=== PATIENT | female | born 1930 | race Caucasian/White ===

== ENCOUNTER 2017-05-05 10:18 | Emergency (ER) | payer MEDICARE, BC ==
[2017-05-05] MEDS ORDERED: Sodium Chloride 0.9% 10 ML Syringe FLUSH PRN (11:04)
[2017-05-05] MEDS ORDERED: HYDROmorphone 0.5 MG/0.5 ML Syringe IVPUSH ONE (11:05)
--- NOTE | 2017-05-05 11:13 | EDM.PDOC ---
ED HPI GENERAL MEDICAL PROBLEM - General Chief Complaint: Head Injury Stated Complaint: FALL/TROUBLE AMBULATING/DIFFICULTY BREATHING Time Seen by Provider: 05/05/17 10:41 Source of Information: Reports: Patient, Family, Long-Term Records History Limitations: Reports: No Limitations - History of Present Illness INITIAL COMMENTS - FREE TEXT/NARRATIVE: Patient is a 87-year-old female with history of chronic atrial fibrillation on Xarelto who presents to the ED complaining of posterior head pain, thoracic and lumbar back pain, and swelling to the back of her head. Patient fell yesterday while in the bathroom. She states her feet got tangled up and she lost her balance hitting the back of her head on a toilet. There was no loss of consciousness. Patient had no complaints yesterday. Today she complains of the above issues. In addition she has no shortness of breath secondary to back spasms. States the back spasms come on intermittently making it difficult for her to take a deep breath. Denies any vision changes, nausea/vomiting, chest pain, abdominal pain, nausea/vomiting, diaphoresis, diarrhea, painful urination , increased swelling to the lower extremities, PND, orthopnea, fever/chills, or any additional complaints. Lower Back Pain Score (Numeric/FACES): 7 Head Pain Score (Numeric/FACES): 7 - Related Data Allergies Allergy/AdvReac Type Severity Reaction Status Date / Time statin Allergy Muscle Uncoded 05/05/17 10:40 Aches Home Meds: Home Meds Aspirin 81 mg PO BRK 07/06/15 [History] Benazepril [Lotensin] 20 mg PO DAILY 07/06/15 [History] Digoxin [Lanoxin] 125 mcg PO DAILY 07/06/15 [History] Ezetimibe [Zetia] 10 mg PO DAILY 07/06/15 [History] Fenofibrate Nanocrystallized [Tricor] 145 mg PO DAILY 07/06/15 [History] Furosemide [Lasix] 40 mg PO DAILY 07/06/15 [History] Metoprolol Tartrate [Lopressor] 100 mg PO BID 07/06/15 [History] Nitroglycerin [Nitrostat] 0.4 mg SL Q5M PRN 07/06/15 [History] Oxymetazoline HCl [Afrin] 2 spray NS BEDTIME PRN 07/06/15 [History] amLODIPine [Norvasc] 5 mg PO DAILY 07/06/15 [History] metFORMIN [Glucophage] 1,000 mg PO DAILY@1700 07/06/15 [History] Acetaminophen [Tylenol] 650 mg PO Q4H PRN #0 tablet 10/08/16 [Rx] Levothyroxine [Synthroid] 50 mcg PO ACBREAKFAST #30 tablet 10/08/16 [Rx] Rivaroxaban [Xarelto] 10 mg PO DAILY #30 tablet 10/08/16 [Rx] Acetaminophen 650 mg PO BEDTIME 05/05/17 [History] Ammonia Solution, Strong/MSM [Penetran + Plus 1.5%] 1 applic TOP BID 05/05/17 [ History] Carboxymethylcellulose Sodium [Refresh Celluvisc] 1 drop EYEBOTH DAILY PRN 05/05 [History] Ciprofloxacin [Ciprofloxacin HCl] 500 mg PO BID #14 tablet 05/05/17 [Rx] Clotrimazole [Lotrimin AF 1% Crm] 1 applic TOP BID PRN 05/05/17 [History] Insulin Aspart [NovoLOG] 12 unit SUBCUT DAILY@1700 05/05/17 [History] Insulin Aspart [Novolog] 10 unit SQ BID@0800,1200 05/05/17 [History] Tresiba 100 Unit /Ml 68 unit SQ BEDTIME 05/05/17 [History] metFORMIN HCl [Metformin HCl] 500 mg PO DAILY@0800 05/05/17 [History] Past Medical History HEENT History: Reports: Cataract Cardiovascular History: Reports: Afib, Bypass, CAD, High Cholesterol, Hypertension Respiratory History: Reports: Sleep Apnea, SOB Gastrointestinal History: Reports: Gastritis Genitourinary History: Reports: Urinary Incontinence Other Genitourinary History: urinary incontinence Musculoskeletal History: Reports: Arthritis, Back Pain, Chronic Endocrine/Metabolic History: Reports: Diabetes, Type II, Hypothyroidism Other Endocrine/Metabolic History: on insulin - Infectious Disease History Infectious Disease History: Reports: Shingles - Past Surgical History HEENT Surgical History: Reports: Cataract Surgery, Tonsillectomy Cardiovascular Surgical History: Reports: Coronary Artery Bypass Social & Family History - Family History Cardiac: Reports: Afib, CAD Respiratory: Reports: COPD, Sleep Apnea GI: Reports: None : Reports: None OBGYN: Reports: None Musculoskeletal: Reports: Arthritis, Back pain, Chronic Neurological: Reports: None Psychiatric: Reports: None Endocrine/Metabolic: Reports: Diabetes, type II, Hypothyroidism Hematologic: Reports: None Immunologic: Reports: None Dermatologic: Reports: None Oncologic: Reports: Bone (brohter), Prostate (father) - Tobacco Use Smoking Status *Q: Former Smoker Years of Tobacco use: 48 Packs/Tins Daily: 1 Used Tobacco, but Quit: Yes Month Tobacco Last Used: around 1996 Second Hand Smoke Exposure: No - Caffeine Use Caffeine Use: Reports: Coffee, Tea Caffeine Use Comment: 2 cups a day - Recreational Drug Use Recreational Drug Use: No - Living Situation & Occupation Living situation: Reports: , Assisted Living Occupation: Retired ED ROS GENERAL - Review of Systems Review Of Systems: See Below Constitutional: Denies: Fever, Chills, Malaise, Decreased Appetite HEENT: Reports: No Symptoms Respiratory: Reports: Shortness of Breath. Denies: Wheezing, Pleuritic Chest Pain, Cough, Sputum, Hemoptysis Cardiovascular: Reports: Dyspnea on Exertion. Denies: Chest Pain, Lightheadedness, Orthopnea, Palpitations, PND, Syncope GI/Abdominal: Reports: No Symptoms : Reports: No Symptoms Musculoskeletal: Reports: Back Pain. Denies: Neck Pain Skin: Reports: Other (hematoma to the posterior head) Neurological: Reports: No Symptoms ED EXAM, HEAD INJURY - Physical Exam Exam: See Below Exam Limited By: No Limitations General Appearance: Alert, WD/WN, Mild Distress Head: Scalp Swelling, Scalp Hematoma (left posterior), Scalp Tenderness (left posterior). No: Scalp Lacerations, Scalp Abrasions, Chong's Sign, Facial Abrasions, Facial Ecchymosis, Facial Lacerations, Facial Swelling, Sinus Tenderness, Facial Tenderness, Raccoon Eyes Nexus Criteria: No: Posterior, Midline Cervical Tenderness, Evidence of Intoxication, Altered Level of Consciousness, Focal Neurological Deficit, Painful Distraction Injuries Eyes: Bilateral Eye: EOMI, Nystagmus (none found), PERRL Ears: Normal External Exam, Hearing Grossly Normal Nose: Normal Inspection, Normal Mucousa, No Blood Throat/Mouth: Normal Inspection, Normal Lips, Normal Voice, No Airway Compromise Neck: Non-Tender, Full Range of Motion, Normal Alignment, Normal Inspection Respiratory: No Respiratory Distress, Lungs Clear, Normal Breath Sounds, No Accessory Muscle Use, Chest Non-Tender Cardiovascular: Normal Peripheral Pulses, No JVD, Irregularly Irregular GI/Abdominal Exam: Normal Bowel Sounds, Soft, Non-Tender, No Organomegaly, No Distention Back Exam: Normal Inspection, Full Range of Motion, Vertebral Tenderness ( thoracic/lumbar) Extremities: Normal Inspection, Normal Range of Motion, Non-Tender, Normal Capillary Refill, Pedal Edema (lower legs 1+) Neurologic: back sizer II-XII nml As Tested, No Motor/Sensory Deficits, Alert, Normal Mood/Affect, Oriented x 3 Skin: Normal Color, Warm/Dry Course - Vital Signs Last Recorded V/S: Last Vital Signs Temp 97.6 F 05/05/17 10:40 Pulse 86 05/05/17 14:20 Resp 16 05/05/17 14:20 BP 191/138 H 05/05/17 14:20 Pulse Ox 94 L 05/05/17 14:20 - Orders/Labs/Meds Orders: Active Orders 24 hr Category Date Time Status EKG Documentation Completion [RC] STAT Care 05/05/17 11:05 Active Peripheral IV Care [RC] . DIRECTED Care 05/05/17 11:05 Active CULTURE URINE [RM] Stat Lab 05/05/17 13:27 Received Peripheral IV Insertion Adult [OM.PC] Stat Oth 05/05/17 11:05 Ordered Peripheral IV Insertion Adult [OM.PC] Stat Oth 05/05/17 11:05 Ordered Labs: Laboratory Tests 05/05/17 05/05/17 05/05/17 Range/Units 11:33 11:33 13:27 WBC 8.61 (3.98-10.04) K/mm3 RBC 4.94 (3.98-5.22) M/mm3 Hgb 13.4 (11.2-15.7) gm/L Hct 43.1 (34.1-44.9) % MCV 87.2 (79.4-94.8) fl MCH 27.1 (25.6-32.2) pg MCHC 31.1 L (32.2-35.5) g/dl RDW Std Deviation 50.6 H (36.4-46.3) fL Plt Count 306 (182-369) K/mm3 MPV 9.8 (9.4-12.3) fl Neut % (Auto) 67.2 (34.0-71.1) % Lymph % (Auto) 20.2 (19.3-51.7) % [place] % (Auto) 9.8 (4.7-12.5) % Eos % (Auto) 1.9 (0.7-5.8) Baso % (Auto) 0.3 (0.1-1.2) % Neut # (Auto) 5.79 (1.56-6.13) K/mm3 Lymph # (Auto) 1.74 (1.18-3.74) K/mm3 [place] # (Auto) 0.84 H (0.24-0.36) K/mm3 Eos # (Auto) 0.16 (0.04-0.36) K/mm3 Baso # (Auto) 0.03 (0.01-0.08) K/mm3 Sodium 139 (136-145) mEq/L Potassium 4.4 (3.5-5.1) mEq/L Chloride 103 (98-107) mEq/L Carbon Dioxide 28 (21-32) mEq/L Anion Gap 12.4 (5-15) BUN 29 H (7-18) mg/dL Creatinine 1.3 H (0.55-1.02) mg/dL Est Cr Clr Drug Dosing 26.82 mL/min Estimated GFR (MDRD) 39 (>60) mL/min BUN/Creatinine Ratio 22.3 H (14-18) Glucose 260 H (83-115) mg/dL Calcium 9.8 (8.5-10.1) mg/dL Total Bilirubin 0.4 (0.2-1.0) mg/dL AST 13 L (15-37) U/L ALT 24 (14-59) U/L Alkaline Phosphatase 59 (46-116) U/L Troponin I < 0.017 (0.00-0.056) ng/mL Ndi-V-Ajshztanarj Pept 1769 H (0-450) pg/mL Total Protein 7.1 (6.4-8.2) g/dl Albumin 3.4 (3.4-5.0) g/dl Globulin 3.7 gm/dL Albumin/Globulin Ratio 0.9 L (1-2) Urine Color Yellow (Yellow) Urine Appearance Slt cloudy H (Clear) Urine pH 7.0 (5.0-8.0) Ur Specific [place] 1.020 (1.005-1.030) Urine Protein Negative (Negative) Urine Glucose (UA) Negative (Negative) Urine Ketones Negative (Negative) Urine Occult Blood Trace-intact H (Negative) Urine Nitrite Positive H (Negative) Urine Bilirubin Negative (Negative) Urine Urobilinogen 0.2 (0.2-1.0) Ur Leukocyte Esterase 3+ H (Negative) Urine RBC 0-5 (0-5) /hpf Urine WBC 50-75 H (0-5) /hpf Ur Epithelial Cells 0-5 (0-5) /hpf Urine Bacteria Moderate H (FEW) /hpf Urine Mucus Not seen (FEW) /hpf Meds: Medications Discontinued Medications Generic Name Dose Route Start Last Admin Trade Name Freq PRN Reason Stop Dose Admin Furosemide 40 mg 05/05/17 13:54 05/05/17 14:21 Lasix PO 05/05/17 13:55 40 mg ONETIME ONE Administration Hydromorphone HCl 0.25 mg 05/05/17 11:05 05/05/17 11:41 Dilaudid IVPUSH 05/05/17 11:06 0.25 mg ONETIME ONE Administration Sodium Chloride 10 ml 05/05/17 11:04 05/05/17 11:33 Saline Flush FLUSH 10 ml ASDIRECTED PRN Administration Keep Vein Open - Re-Assessments/Exams Free Text/Narrative Re-Assessment/Exam: IV started with Dilaudid 0.25 mg IVP. We'll obtain a CT of the head without contrast, thoracic spine, and lumbar spine. Chest x-ray will be obtained along with CBC, chem 14, CRP, BnP, troponin, and EKG. EKG: atrial fibrillation rate of 87. No acute ST changes noted. 05/05/17 11:43 CT the head impression: Findings within the posterior left scalp as noted above. Please correlate if this represents a hematoma and adjacent soft tissue swelling from recent trauma. Differential also includes a skin tumor. Generalized atrophy. 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 No acute intracranial abnormalities appreciated. CT lumbar spine impression: Degenerative change and prior surgery as described above. No acute bony abnormality is identified. Chest x-ray revealed sternotomy wires present. Heart size to the upper limits of normal. No increased pulmonary vascularization. No acute findings noted. Final interpretation pending. CT thoracic spine impression: Mild anterior wedging of T8, age of this is indeterminate. MRI would be needed to determine age if clinically indicated. Degenerative change as noted above. Nothing acute is otherwise suggested on CT study of the thoracic spine. 05/05/17 12:52 CBC is essentially normal. Sodium 139, potassium 4.4, creatinine 1.3, UA and 29, glucose 260, troponin less than 0.017, proBNP 1769. Unclear if this is quite elevated for the patient or not. We do have previous results. 05/05/17 13:00 I have attempted to make contact with patient's primary care provider Dr. Magali Chavez. They will call me back when available. Will discuss increasing her Lasix dosage due to the SOB with elevated BNP. 1311 Patient resting comfortably in bed wishing to go to the bathroom. Pain has been controlled with the above therapies. Presumably this is a new injury to the thoracic spine with new-onset of pain. 05/05/17 13:[address] Chavez patients PCP. Requests increasing lasix to 80 mg once a day. No narcotics upon discharge. Requests tylenol for pain. Will discharge patient home with instructions as documented. Patient discharged prior to UA results. 05/05/17 16:19 UA revealed uti. Urine culture obtained. Prescription for Cipro 500 mg twice a day for 7 days transmitted to patient's pharmacy. Patient has been notified by nursing staff. Departure - Departure Time of Disposition: 13:45 Disposition: Home, Self-Care 01 Condition: Good Clinical Impression: Heart failure Qualifiers: Heart failure type: unspecified heart failure type Heart failure chronicity: chronic Qualified Code(s): I50.9 - Heart failure, unspecified Wedge fracture of thoracic vertebra Qualifiers: Encounter type: subsequent encounter Thoracic vertebra fracture level: T8 Fracture type: closed Fracture healing: with routine healing Qualified Code(s): S22.060D - Wedge compression fracture of T7-T8 vertebra, subsequent encounter for fracture with routine healing Head contusion Qualifiers: Encounter type: initial encounter Contusion of head detail: scalp Qualified Code(s): S00.03XA - Contusion of scalp, initial encounter - Discharge Information Prescriptions: Ciprofloxacin [Ciprofloxacin HCl] 500 mg PO BID #14 tablet Instructions: Facial or Scalp Contusion, [id number], Head Injury, Adult, Easy -to-Read, Hematoma, [id number] Referrals: Magali Chavez MD [Primary Care Provider] - Forms: ED Department Discharge Care Plan Goals: CT of the thoracic spine revealed mild anterior wedge fracture to T8. Presumably this is a acute injury with recent fall. Will have you take Tylenol 650 mg every 4-6 hours as needed for pain. Apply ice to affected area as needed. Refrain from ice placed on the skin. Utilize warm compresses as needed as well. Dr. Chavez can arrange MRI of the thoracic spine if needed. In addition you have a hematoma to the posterior aspect to her head. Use the above therapies for pain relief. BNP which is a marker for heart failure was elevated at 1700 with shortness of breath upon examination. Will increase lasix 40mg PO once a day to 80 mg once a day[address] Dr. Chavez wants to see you this week or the first part of next week for reevaluation. You are at increased risk of falling today since receiving a sedative medication while in the ED. When getting up suggested having assistance utilizing a walker and/or wheelchair to ambulate. Return to the ED for any new or worsening symptoms. - My Orders Last 24 Hours: My Active Orders 05/05/17 11:05 EKG Documentation Completion [RC] STAT Peripheral IV Care [RC] . DIRECTED Peripheral IV Insertion Adult [OM.PC] Stat Peripheral IV Insertion Adult [OM.PC] Stat 05/05/17 13:27 CULTURE URINE [RM] Stat - Assessment/Plan Last 24 Hours: My Active Orders 05/05/17 11:05 EKG Documentation Completion [RC] STAT Peripheral IV Care [RC] . DIRECTED Peripheral IV Insertion Adult [OM.PC] Stat Peripheral IV Insertion Adult [OM.PC] Stat 05/05/17 13:27 CULTURE URINE [RM] Stat
--- NOTE | 2017-05-05 11:40 | CT ---
Head CT Technique: Multiple axial sections through the brain were obtained. Intravenous contrast was not utilized. Comparison: No previous intracranial imaging. Findings: Hyperdense lesion is seen within the posterior left scalp measuring 1.2 cm with adjacent soft tissue swelling. Ventricles along with basal cisterns and sulci over the convexities are moderately prominent. 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 Minimal diminished density is noted within the periventricular and subcortical white matter compatible with small vessel ischemic demyelination change. No evidence of intracranial hemorrhage. No midline shift or mass effect is seen. Bone window settings were reviewed which shows the visualized sinuses to appear clear. No acute calvarial abnormality is seen. Impression: 1. Finding within the posterior left scalp as noted above. Please correlate if this represents a hematoma and adjacent soft tissue swelling from recent trauma. Differential also includes a skin tumor. 2. Generalized atrophy. Old infarct and other senescent change. 3. No acute intracranial abnormality is appreciated. Diagnostic code #3
--- NOTE | 2017-05-05 11:42 | CT ---
CT lumbar spine Technique: Multiple axial sections were obtained through the lumbar spine. Reconstructed coronal and sagittal images were reviewed. Findings: Posterior laminectomy is noted at L4-L5. Mild spondylolisthesis noted at L4-L5 compatible with degenerative apophyseal change. Vacuum disc phenomena is seen within the L4-L5 discs. Other disc spaces within the lumbar spine are preserved. Scattered degenerative apophyseal change is seen within the lumbar spine. No acute fracture is identified. Vacuum phenomena is noted within the sacroiliac joints. Diffuse circumferential disc bulging is seen throughout the lumbar spine. Soft tissue density is seen within the right L4-L5 neural foramina. Uncertain how much of this is due to scarring or disc material. Impression: 1. Degenerative change and prior surgery as described above. 2. No acute bony abnormality is identified. Diagnostic code #3
--- NOTE | 2017-05-05 12:10 | CT ---
CT thoracic spine Technique: Multiple axial sections were obtained through the thoracic spine. Reconstructed sagittal and coronal images were reviewed. Comparison: Previous chest x-ray showing the lateral spine dated 10/05/16. Slight anterior wedging of T8 is seen. This involves mostly the inferior endplate. Age of this is indeterminate. Other vertebral body heights are maintained. Scattered disc space narrowing is seen. Small amount of epidural air is seen posterior to T6 likely from a ruptured annulus at the level of vacuum phenomena within the disc. This is felt to be incidental. Degenerative change is partially visualized within the cervical spine. No bony central canal stenosis is seen. No bony neural foraminal stenosis is seen. No abnormal subluxation is seen within the thoracic spine. No paravertebral soft tissue swelling is seen. Impression: 1. Mild anterior wedging of T8, age of this is indeterminate. MRI would be needed to determine age if clinically indicated. 2. Degenerative change as noted above. 3. Nothing acute is otherwise suggested on CT study of the thoracic spine. Diagnostic code #3
[2017-05-05] MEDS ORDERED: Furosemide 40 MG Tab PO ONE (13:54)
--- NOTE | 2017-05-05 15:29 | CR ---
Chest: Two views of the chest were obtained. Comparison: Previous chest x-ray of 10/05/16. Heart is enlarged. Slight tortuosity of the thoracic aorta is seen. Mild interstitial change is noted which appears chronic. No acute infiltrates are seen. Lungs are hyperinflated compatible with emphysematous change. Sternotomy noted for previous CABG. Impression: 1. Emphysematous change. Other findings as noted above. Nothing acute is appreciated. Diagnostic code #2
[2017-05-05 15:30] VITALS: BP 191/138
== END 2017-05-05 14:25 | disposition home or self-care (01) ==
LOC: JD.ED 10:18
DX: S00.03XA Contusion of scalp, initial encounter (principal); I11.0 Hypertensive heart disease with heart failure; S22.060D Wedge compression fracture of T7-T8 vertebra, subsequent encounter for fracture with routine healing; I50.9 Heart failure, unspecified; I48.91 Unspecified atrial fibrillation; I25.10 Atherosclerotic heart disease of native coronary artery without angina pectoris; E78.00 Pure hypercholesterolemia, unspecified; M19.90 Unspecified osteoarthritis, unspecified site; E11.9 Type 2 diabetes mellitus without complications; E03.9 Hypothyroidism, unspecified; Z98.49 Cataract extraction status, unspecified eye; Z95.1 Presence of aortocoronary bypass graft; Z98.890 Other specified postprocedural states; Z87.891 Personal history of nicotine dependence; Z88.8 Allergy status to other drugs, medicaments and biological substances; Z79.82 Long term (current) use of aspirin; Z79.4 Long term (current) use of insulin; Z79.84 Long term (current) use of oral hypoglycemic drugs; Z79.899 Other long term (current) drug therapy; Y92.002 Bathroom of unspecified non-institutional (private) residence as the place of occurrence of the external cause; W01.198A Fall on same level from slipping, tripping and stumbling with subsequent striking against other object, initial encounter
CPT/HCPCS: 36415; 70450; 71020; 72128; 72131; 80053; 81001; 83880; 84484; 85025; 87086; 87088; 87186; 93005; 96374; 99285; A9270; J1170; J7050; 99284

== ENCOUNTER 2018-01-04 02:47 | Emergency (ER) | payer MEDICARE, BC, MEDICAID ==
[2018-01-04 02:56] VITALS: BP 132/85
[2018-01-04] MEDS ORDERED: Acetaminophen 325 MG Tab PO STA (03:26)
--- NOTE | 2018-01-04 03:31 | EDM.PDOC ---
ED HPI GENERAL MEDICAL PROBLEM - General Chief Complaint: Chest Pain Stated Complaint: [facility] Time Seen by Provider: 01/04/18 03:08 Source of Information: Reports: Patient, Family History Limitations: Reports: No Limitations - History of Present Illness INITIAL COMMENTS - FREE TEXT/NARRATIVE: The patient states that she has been experiencing left-sided chest pain on and off since yesterday morning, 01/03/2018, after she fell out of bed. She is unable to describe the pain other than "a hurt", and she indicates with one finger to the lateral aspect of her left breast. The pain is not there if she remains still or takes a deep breath, but is there if she coughs or rolls onto her left side. There are no associated symptoms, such as nausea, diaphoresis, dyspnea, or sense of impending doom. She is not sure if she has had similar symptoms in the past. No recent fever. Occasional cough. - Related Data Allergies Allergy/AdvReac Type Severity Reaction Status Date / Time statin Allergy Muscle Uncoded 01/04/18 03:04 Aches Home Meds: Home Meds Aspirin 81 mg PO BRK 07/06/15 [History] Benazepril [Lotensin] 20 mg PO DAILY 07/06/15 [History] Digoxin [Lanoxin] 125 mcg PO DAILY 07/06/15 [History] Ezetimibe [Zetia] 10 mg PO DAILY 07/06/15 [History] Fenofibrate Nanocrystallized [Tricor] 145 mg PO DAILY 07/06/15 [History] Furosemide [Lasix] 40 mg PO DAILY 07/06/15 [History] Metoprolol Tartrate [Lopressor] 100 mg PO BID 07/06/15 [History] Nitroglycerin [Nitrostat] 0.4 mg SL Q5M PRN 07/06/15 [History] Oxymetazoline HCl [Afrin] 2 spray NS BEDTIME PRN 07/06/15 [History] amLODIPine [Norvasc] 5 mg PO DAILY 07/06/15 [History] metFORMIN [Glucophage] 1,000 mg PO DAILY@1700 07/06/15 [History] Acetaminophen [Tylenol] 650 mg PO Q4H PRN #0 tablet 10/08/16 [Rx] Levothyroxine [Synthroid] 50 mcg PO ACBREAKFAST #30 tablet 10/08/16 [Rx] Rivaroxaban [Xarelto] 10 mg PO DAILY #30 tablet 10/08/16 [Rx] Acetaminophen 650 mg PO BEDTIME 05/05/17 [History] Ammonia Solution, Strong/MSM [Penetran + Plus 1.5%] 1 applic TOP BID 05/05/17 [ History] Carboxymethylcellulose Sodium [Refresh Celluvisc] 1 drop EYEBOTH DAILY PRN 05/05 [History] Ciprofloxacin [Ciprofloxacin HCl] 500 mg PO BID #14 tablet 05/05/17 [Rx] Clotrimazole [Lotrimin AF 1% Crm] 1 applic TOP BID PRN 05/05/17 [History] Insulin Aspart [NovoLOG] 12 unit SUBCUT DAILY@1700 05/05/17 [History] Insulin Aspart [Novolog] 10 unit SQ BID@0800,1200 05/05/17 [History] Tresiba 100 Unit /Ml 68 unit SQ BEDTIME 05/05/17 [History] metFORMIN HCl [Metformin HCl] 500 mg PO DAILY@0800 05/05/17 [History] Past Medical History HEENT History: Reports: Impaired Vision Cardiovascular History: Reports: Afib (paroxysmal), CAD, High Cholesterol, Hypertension Respiratory History: Reports: Sleep Apnea Gastrointestinal History: Reports: Gastritis Genitourinary History: Reports: Urinary Incontinence Musculoskeletal History: Reports: Arthritis, Back Pain, Chronic, Other (See Below) (Left shoulder adhesive capsulitis) Endocrine/Metabolic History: Reports: Diabetes, Type II, Hypothyroidism, Obesity /BMI 30+ - Infectious Disease History Infectious Disease History: Reports: Shingles - Past Surgical History HEENT Surgical History: Reports: Cataract Surgery, Tonsillectomy Cardiovascular Surgical History: Reports: Coronary Artery Bypass (x 3 vessel) GI Surgical History: Reports: Appendectomy Social & Family History - Family History Cardiac: Reports: Afib, CAD Respiratory: Reports: COPD, Sleep Apnea GI: Reports: None : Reports: None OBGYN: Reports: None Musculoskeletal: Reports: Arthritis, Back pain, Chronic Neurological: Reports: None Psychiatric: Reports: None Endocrine/Metabolic: Reports: Diabetes, type II, Hypothyroidism Hematologic: Reports: None Immunologic: Reports: None Dermatologic: Reports: None Oncologic: Reports: Bone, Prostate - Tobacco Use Smoking Status *Q: Former Smoker Years of Tobacco use: 48 Packs/Tins Daily: 1 Month/Year Tobacco Last Used: Quit around 1996 Second Hand Smoke Exposure: No - Caffeine Use Caffeine Use: Reports: Coffee Caffeine Use Comment: 2 cups a day - Alcohol Use Alcohol Use History: No - Recreational Drug Use Recreational Drug Use: No - Living Situation & Occupation Living situation: Reports: , Assisted Living ([place]) Occupation: Retired ED ROS GENERAL - Review of Systems Review Of Systems: ROS reveals no pertinent complaints other than HPI. ED EXAM, GENERAL - Physical Exam Exam: See Below Exam Limited By: No Limitations General Appearance: Alert, WD/WN, No Apparent Distress Eye Exam: Bilateral Eye: Normal Inspection Ears: Normal External Exam, Hearing Grossly Normal Nose: Normal Inspection, No Blood Throat/Mouth: Normal Inspection, Normal Lips, Normal Voice, No Airway Compromise Head: Atraumatic, Normocephalic Neck: Normal Inspection, Full Range of Motion Respiratory/Chest: No Respiratory Distress, Lungs Clear, Normal Breath Sounds, No Accessory Muscle Use, Other (Reproducible tenderness to palpation of the left lateral pectoralis muscle) Cardiovascular: Normal Peripheral Pulses, No Gallop, No JVD, No Murmur, No Rub, Irregularly Irregular (regular rate) Peripheral Pulses: 4+: Radial (L), Radial (R) GI/Abdominal: Normal Bowel Sounds, Soft, Non-Tender, No Organomegaly, No Distention, No Abnormal Bruit, No Mass, Other (Obese) (Female) Exam: Deferred Rectal (Female) Exam: Deferred Back Exam: Normal Inspection, Full Range of Motion, NT Extremities: Normal Inspection, Normal Range of Motion, No Pedal Edema, Normal Capillary Refill Neurological: Alert, Oriented, Normal Cognition, No Motor/Sensory Deficits Psychiatric: Normal Affect Skin Exam: Warm, Dry, Intact, Normal Color, No Rash Course - Vital Signs Last Recorded V/S: Last Vital Signs Temp 36.0 C 01/04/18 02:51 Pulse 81 01/04/18 02:51 Resp 19 01/04/18 02:51 BP 132/85 01/04/18 02:51 Pulse Ox 95 01/04/18 02:51 - Orders/Labs/Meds Orders: Active Orders 24 hr Category Date Time Status EKG Documentation Completion [RC] STAT Care 01/04/18 03:25 Active Meds: Medications Discontinued Medications Generic Name Dose Route Start Last Admin Trade Name Freq PRN Reason Stop Dose Admin Acetaminophen 650 mg 01/04/18 03:26 01/04/18 03:31 Tylenol PO 01/04/18 03:27 650 mg ONETIME STA Administration - Re-Assessments/Exams Free Text/Narrative Re-Assessment/Exam: 01/04/18 03:27 The patient's chest pain is under the lateral aspect of her left breast, and is reproducible with coughing and palpation, consistent with musculoskeletal etiology. There are no features suggestive of ischemia, and there are no ischemic changes on her ECG. Further evaluation, including blood work, was offered, but declined. I have ordered Tylenol, and will allow the patient to return home. Departure - Departure Time of Disposition: 03:28 Disposition: Home, Self-Care 01 Condition: Good Clinical Impression: Musculoskeletal chest pain - Discharge Information Instructions: Musculoskeletal Pain Referrals: Magali Chavez MD [Primary Care Provider] - Forms: ED Department Discharge Additional Instructions: You were seen in the emergency room for left-sided chest pain on and off since 01/03/2018. On evaluation, your chest pain is musculoskeletal in etiology. You likely injured yourself when you fell at home. Further workup, including blood work, was offered, but declined. Take [id number] Tylenol as needed for discomfort. Stay active. If any other problems, please do not hesitate to return to the ER. - My Orders Last 24 Hours: My Active Orders 01/04/18 03:25 EKG Documentation Completion [RC] STAT - Assessment/Plan Last 24 Hours: My Active Orders 01/04/18 03:25 EKG Documentation Completion [RC] STAT
== END 2018-01-04 04:21 | disposition home or self-care (01) ==
LOC: JD.ED 02:47
DX: R07.89 Other chest pain (principal); I48.91 Unspecified atrial fibrillation; I25.810 Atherosclerosis of coronary artery bypass graft(s) without angina pectoris; E78.00 Pure hypercholesterolemia, unspecified; I10 Essential (primary) hypertension; E11.9 Type 2 diabetes mellitus without complications; E03.9 Hypothyroidism, unspecified; E66.9 Obesity, unspecified; Z87.891 Personal history of nicotine dependence; Z79.899 Other long term (current) drug therapy; Z79.84 Long term (current) use of oral hypoglycemic drugs; Z88.8 Allergy status to other drugs, medicaments and biological substances; Z68.33 Body mass index [BMI] 33.0-33.9, adult; Z79.82 Long term (current) use of aspirin; Z95.5 Presence of coronary angioplasty implant and graft
CPT/HCPCS: 93005; 99285; A9270; 99283